=== PATIENT | female | born 1995 | race African-American/Black ===

== ENCOUNTER 2024-01-15 09:03 | Emergency (ER) | payer SELFPAY ==
[~2024-01-15 09:03] MED LIST: Iopamidol 370 76% 100 ML VIAL ONE
[2024-01-15 09:36] LABS: BHCG - Serum Negative (NEGATIVE); Pregs Control Background? CLEAR/WHITE (CLR/WHITE); Pregs Control Bar Appear? YES (CONTROL BAR)
[2024-01-15] MEDS ORDERED: Ketorolac Tromethamine 30 MG (1 mL) VIAL ONE (10:08)
[2024-01-15] MEDS ORDERED: Sodium Chloride 0.9% 1,000 ML ONE (10:08)
== END 2024-01-15 11:10 | disposition home or self-care (01) ==
LOC: MADERS 09:03
DX: S00.83XA Contusion of other part of head, initial encounter (principal); S09.90XA Unspecified injury of head, initial encounter; F17.290 Nicotine dependence, other tobacco product, uncomplicated; X58.XXXA Exposure to other specified factors, initial encounter
CPT/HCPCS: 36416; 70450; 70486; 71260; 72125; 74177; 84703; 96361; 96374; J1885; J7050; Q9967